=== PATIENT | male | born 1985 | race Caucasian/White ===

== ENCOUNTER → 2016-06-10 | Outpatient (CLI) | payer BC ==
--- NOTE | 2016-06-10 09:25 | DIAGNOSTIC IMAGING REPORT ---
TESTICULAR ULTRASOUND CLINICAL HISTORY: Renal mass COMPARISON STUDY: 11/30/2015 FINDINGS: The right testis measures 4.4 x 2.0 x 2.2 cm. The left testis measures 4.4 x 1.9 x 2.2 cm. There are developing nonspecific hypoechoic somewhat tubular lesions involving the posterior left testis. These are nonspecific but do not have the typical appearance of a neoplasm. Short-term follow-up is recommended. There is a small left-sided epididymal cyst. There is a left-sided varicocele. There is no definite testicular torsion. IMPRESSION: 1. Developing hypoechoic lesions within the posterior left testis. These have a somewhat tubular configuration and are not typical for neoplasm. Close clinical and imaging follow-up is recommended 2. Left-sided varicocele 3. No evidence of testicular torsion Electronically signed by: Chung Vanegas M.D. 06/10/2016 9:23 AM Dictated Date/Time: 06/10/2016 9:12 AM
== END | disposition home or self-care (01) ==
LOC: C.ULTRBC 08:35
PROVIDERS: ATTEND Urology
DX: I86.1 Scrotal varices (principal)

== ENCOUNTER → 2016-12-19 | Outpatient (CLI) | payer BC ==
--- NOTE | 2016-12-19 09:23 | DIAGNOSTIC IMAGING REPORT ---
TESTICULAR ULTRASOUND CLINICAL HISTORY: N50.9 Testicular mass COMPARISON STUDY: 06/10/2016 FINDINGS: The right testis measures 5 x 2.9 x 2.1 cm. The left testis measures 3.9 x 2.6 x 1.6 cm. Clustered hypodense/cystic lesions are again visualized within the posterior subtunica focal portion of the left testis. These measure 14 x 5 x 4 mm in aggregate and remain similar to the prior study. There is a small left-sided there is still. IMPRESSION: Stable hypodense/cystic lesions within the posterior subtunica portion of the left testis. These remain unchanged from the preceding examination. These do not have the typical appearance of neoplasm. A one year follow-up study is recommended. Electronically signed by: Chung Vanegas M.D. 12/19/2016 9:21 AM Dictated Date/Time: 12/19/2016 9:16 AM
== END | disposition home or self-care (01) ==
LOC: C.ULTRBC 08:36
PROVIDERS: ATTEND Urology
DX: N50.9 Disorder of male genital organs, unspecified (principal)